=== PATIENT | female | born 1930 | race Caucasian/White ===

== ENCOUNTER 2017-03-29 23:02 | Emergency (ER) | payer MEDICARE, MEDICAID ==
[2017-03-29] MEDS ORDERED: LORazepam 0.5 MG Tab PO ONE (23:03)
--- NOTE | 2017-03-29 23:33 | EDM.PDOC ---
ED HPI GENERAL MEDICAL PROBLEM - General Chief Complaint: General Stated Complaint: RESTLESS Time Seen by Provider: 03/29/17 23:31 Source of Information: Reports: Patient, [facility] Living Records History Limitations: Reports: No Limitations - History of Present Illness INITIAL COMMENTS - FREE TEXT/NARRATIVE: pt states been coughing not sleeping well past 2 nights has restless leg problems and back always hurts can't get comfortable in bed. Left Hip Pain Score (Numeric/FACES): 2 - Related Data Allergies Allergy/AdvReac Type Severity Reaction Status Date / Time adhesive Allergy Unknown Unknown Verified 03/29/17 23:20 propoxyphene napsylate Allergy Unknown unknown Verified 03/29/17 23:20 [From Darvocet-N 100] amoxicillin trihydrate AdvReac Unknown Anxiety Verified 03/29/17 23:20 [From Augmentin] atorvastatin calcium AdvReac Unknown Nausea Verified 03/29/17 23:20 [From Lipitor] potassium clavulanate AdvReac Unknown Anxiety Verified 03/29/17 23:20 [From Augmentin] ropinirole HCl [From Requip] AdvReac Unknown Anxiety Verified 03/29/17 23:20 Home Meds: Home Meds Cosopt Eye Drops 1 drop EYEBOTH BID 09/26/13 [History] Enalapril Maleate [Vasotec] 20 mg PO DAILY 09/26/13 [History] Furosemide [Lasix] 60 mg PO BID 09/26/13 [History] Hydrocortisone 1% Crm 1 applic TOP ASDIRECTED PRN 09/26/13 [History] Lanoxin 0.125 mg PO DAILY 09/26/13 [History] Loperamide [Imodium] 2 mg PO QID PRN 09/26/13 [History] Metoprolol Succinate [Toprol XL] 25 mg PO DAILY 09/26/13 [History] Potassium Chloride [Klor-Con] 40 meq PO TID 09/26/13 [History] Simvastatin [Zocor] 10 mg PO BEDTIME 09/26/13 [History] traMADol [Ultram] 50 mg PO QID PRN 09/26/13 [History] Latanoprost 1 drop EYEBOTH BEDTIME 10/07/13 [History] Pramipexole [Mirapex] 0.75 mg PO DAILY 10/08/13 [History] Acetaminophen [Tylenol] 650 mg PO Q6H PRN 10/19/13 [History] Albuterol [Proventil] 2.5 mg NEB Q4H PRN 10/19/13 [History] Ipratropium/Albuterol Sulfate [Duoneb 0.5 MG-3 MG/3 ML] 3 ml IH TID 10/19/13 [ History] traMADol [Ultram] 50 mg PO BEDTIME 12/26/13 [History] Fluticasone/Salmeterol [Advair 250-50 Diskus] 1 inh INH BID 12/12/14 [History] Magnesium Hydroxide [Milk of Magnesia] 30 ml PO ASDIRECTED PRN 12/12/14 [History ] Magnesium Oxide 250 mg PO BID 12/12/14 [History] Melatonin 4 mg PO BEDTIME 12/12/14 [History] Multivitamin [Multivitamins] 1 tab PO DAILY 12/12/14 [History] Sertraline HCl [Sertraline HCl] 25 mg PO BEDTIME 12/12/14 [History] predniSONE [Prednisone] 10 mg PO ASDIRECTED 12/12/14 [History] Past Medical History HEENT History: Reports: Allergic Rhinitis, Glaucoma, Impaired Vision, Other ( See Below) Other HEENT History: wears glasses Cardiovascular History: Reports: Afib, Heart Failure, High Cholesterol, Hypertension Respiratory History: Reports: Asthma, Bronchitis, Recurrent, SOB Gastrointestinal History: Reports: Chronic Constipation Musculoskeletal History: Reports: Osteoarthritis Psychiatric History: Reports: Depression Endocrine/Metabolic History: Reports: Diabetes, Type II Hematologic History: Reports: None Immunologic History: Reports: None Oncologic (Cancer) History: Reports: None Dermatologic History: Reports: Cellulitis - Past Surgical History Musculoskeletal Surgical History: Reports: Other (See Below) Other Musculoskeletal Surgeries/Procedures:: hip fracture Social & Family History - Tobacco Use Smoking Status *Q: Unknown Ever Smoked Second Hand Smoke Exposure: No - Alcohol Use Days Per Week of Alcohol Use: 0 - Recreational Drug Use Recreational Drug Use: No - Living Situation & Occupation Living situation: Reports: Extended Care Facility Occupation: Retired ED ROS GENERAL - Review of Systems Review Of Systems: ROS reveals no pertinent complaints other than HPI. ED EXAM, GENERAL - Physical Exam Exam: See Below Exam Limited By: No Limitations General Appearance: Alert, WD/WN, No Apparent Distress, Other (chatty & pleasant ) Ears: Hearing Grossly Normal Throat/Mouth: Normal Inspection, Normal Oropharynx, Normal Voice, No Airway Compromise Head: Atraumatic Neck: Non-Tender, Full Range of Motion Respiratory/Chest: No Respiratory Distress, No Accessory Muscle Use, Rhonchi, Other (basilar). No: Decreased Breath Sounds Cardiovascular: Regular Rate, Rhythm GI/Abdominal: Soft, Non-Tender Neurological: Alert, Oriented, Normal Cognition, No Motor/Sensory Deficits Psychiatric: Normal Affect, Normal Mood Skin Exam: Warm, Dry, Normal Color Lymphatic: No Adenopathy Course - Vital Signs Last Recorded V/S: Last Vital Signs Temp 36.4 C 03/29/17 23:29 Pulse 115 H 03/29/17 23:29 Resp 18 03/29/17 23:29 BP 147/85 H 03/29/17 23:29 Pulse Ox 94 L 03/29/17 23:29 Departure - Departure Time of Disposition: 23:47 Disposition: DC/[facility] to [facility] Condition: Good Clinical Impression: Chronic back pain Insomnia Qualifiers: Insomnia type: unspecified Qualified Code(s): G47.00 - Insomnia, unspecified - Discharge Information Forms: ED Department Discharge Additional Instructions: 1) continue meds 2) see family doctor Friday as needed Rx togo; ativan 0.5mg tonight
[2017-03-29 23:47] VITALS: BP 147/85
[2017-03-29] MEDS ORDERED: LORazepam 0.5 MG Tab ONE (23:59)
== END 2017-03-30 00:10 ==
LOC: DL.ED 23:02
DX: M54.9 Dorsalgia, unspecified (principal); G89.29 Other chronic pain; G47.00 Insomnia, unspecified; I11.0 Hypertensive heart disease with heart failure; I50.9 Heart failure, unspecified; E78.00 Pure hypercholesterolemia, unspecified; J45.909 Unspecified asthma, uncomplicated; F32.9 Major depressive disorder, single episode, unspecified; E11.9 Type 2 diabetes mellitus without complications; Z88.1 Allergy status to other antibiotic agents; Z88.8 Allergy status to other drugs, medicaments and biological substances; Z91.048 Other nonmedicinal substance allergy status; Z79.899 Other long term (current) drug therapy; Z98.890 Other specified postprocedural states
CPT/HCPCS: 71010; 99283; A9270